=== PATIENT | female | born 1990 | race Hispanic/Latino ===

== ENCOUNTER 2017-10-24 21:15 | Emergency (ER) ==
--- NOTE | 2017-10-24 23:11 | ULT ---
PELVIC ULTRASOUND 10/24/17 COMPARISON: None. HISTORY: 27-year-old female with vaginal pain, right lower quadrant pain, assess for ectopic . TECHNIQUE: Multiplanar duckworth scale sonographic imaging of the pelvis obtained with transabdominal imaging. The ov claudette are assessed for color flow and spectral analysis. FINDINGS: The uterus contains a gestational sac with a single fetus demonstrating a heart rate of 171 beats per minute. Gestational age limits assessment of the anatomy. A breech presentation is noted. Right ovary measures approximately 4.5 x 3.3 cm and demonstrates normal blood flow. A vague right ova digna cyst is suspected, measuring in the 2.3 cm range. Left ovary measures 2.6 x 2.3 cm and demonstrates normal blood flow. Placenta is located posteriorly and to the right. BIOMETRY: BPD 2.4 cm 14 weeks, 0 days HC 9.0 cm 14 weeks, 0 days AC 8.3 cm 14 weeks, 4 days FL 1.5 cm 14 weeks, 2 days Average age based on ultrasound is 14 weeks, 0 days with estimated date of delivery on 04/24/18. Estim ated weight is 97 grams plus/minus 14 grams. IMPRESSION: Intrauterine gestation as detailed above. POS: [facility]
== END 2017-10-24 23:40 | disposition home or self-care (01) ==
LOC: ERS 21:15
DX: O99.89 Other specified diseases and conditions complicating pregnancy, childbirth and the puerperium (principal); R10.9 Unspecified abdominal pain; Z3A.16 16 weeks gestation of pregnancy
CPT/HCPCS: 76856; 93976

== ENCOUNTER 2018-04-22 12:06 | Inpatient (IN) | payer MEDICAID, OTHER, SELFPAY ==
[2018-04-23 05:48] VITALS: BMI 43.4
[2018-04-23] MEDS ORDERED: DISCONTINUE ALL PREVIOUS NARCOTICS FS SCH (06:15)
[2018-04-23] MEDS ORDERED: Bupivacaine 0.5% 20 ML, fentaNYL Citrate/PF 400 MCG in Sodium Chloride 0.9% 72 ML EPIDURAL SCH (06:15)
[2018-04-23] MEDS ORDERED: Lidocaine 1% (PF) 30 ML VIAL ONE (06:41)
[2018-04-23] MEDS ORDERED: NS / Oxytocin 40 units/1000ml 0 ML ONE (06:41)
[2018-04-23 06:42] LABS: Hemoglobin 13.3 g/dL (12.0-16.0); Mean Corpuscular HGB CONC 34.5 g/dL (32.0-36.0); Mean Corpuscular Hemoglobin 28.4 pg (27.0-31.0); Mean Corpuscular Volume 82.4 fL (78.0-98.0); Mean Platelet Volume 10.8 fL (7.4-10.4); Platelet Count 169 thou/uL (130-400); RBC Distribution Width 14.7 % (11.5-14.5); Red Blood Cell (RBC) Count 4.69 mill/uL (4.20-5.40); White Blood Cell (WBC) Count 12.5 thou/uL (4.8-10.8)
[2018-04-23 06:57] LABS: HBSAg Index 0.19 S/CO (0-0.99); Hep B Surf Ag Non-Reactive S/CO (NonReactive); Syphilis Antibody Nonreactive (Nonreactive); Syphilis Antibody Index 0.03 S/CO (<1.00 Non-Reactive)
[2018-04-23] MEDS ORDERED: NS / Oxytocin 40 units/1000ml 1,000 ML ONE ×2 (08:55)
[2018-04-23] MEDS ORDERED: Lanolin Ointment 7 GM TUBE TOP PRN (10:56)
[2018-04-23] MEDS ORDERED: Benzocaine/Menthol 20-0.5% 60 ML CAN TOP PRN (10:56)
[2018-04-23] MEDS ORDERED: HYDROcodone/Acetaminophen 5/325 mg Tablet PO PRN (10:56)
[2018-04-23] MEDS ORDERED: diphenhydrAMINE 25 MG CAP PO PRN (10:56)
[2018-04-23] MEDS ORDERED: Ondansetron HCl/PF 4 MG/2 ML Vial IVP PRN (10:56)
[2018-04-23] MEDS ORDERED: Preparation H Ointment 28 GM TUBE PR PRN (10:56)
[2018-04-23] MEDS ORDERED: Bisacodyl 10 MG SUPP PR PRN (10:56)
[2018-04-23] MEDS ORDERED: Milk Of Magnesia 30 ML UDCUP PO PRN (10:56)
[2018-04-23] MEDS ORDERED: NS / Oxytocin 40 units/1000ml 1,000 ML IV SCH (10:56)
[2018-04-23] MEDS: HYDROcodone/Acetaminophen 5/325 mg Tablet PO PRN (11:15)
[2018-04-23] MEDS: Docusate Calcium (SURFAK) 240 MG CAP PO SCH ×2 (11:30→21:11)
[2018-04-23] MEDS: Ferrous Sulfate 325 MG TAB PO SCH ×2 (12:46→17:07)
[2018-04-23] MEDS: Prenatal Vitamin 1 TAB PO SCH (12:46)
[2018-04-23] MEDS: Ibuprofen 800 MG TAB PO SCH ×2 (13:48→21:11)
[2018-04-24] MEDS: HYDROcodone/Acetaminophen 5/325 mg Tablet PO PRN (04:15)
[2018-04-24 05:25] LABS: Hemoglobin 12.6 g/dL (12.0-16.0); Mean Corpuscular Hemoglobin 28.5 pg (27.0-31.0); Mean Corpuscular Volume 83.9 fL (78.0-98.0); Mean Platelet Volume 10.2 fL (7.4-10.4); Platelet Count 152 thou/uL (130-400); RBC Distribution Width 14.8 % (11.5-14.5); Red Blood Cell (RBC) Count 4.41 mill/uL (4.20-5.40); White Blood Cell (WBC) Count 12.7 thou/uL (4.8-10.8)
[2018-04-24] MEDS: Ibuprofen 800 MG TAB PO SCH (06:19)
[2018-04-24] MEDS ORDERED: Hydrocodone-Acetamin 15 ML UDCUP PO PRN ×2 (06:41)
[2018-04-24] MEDS: Prenatal Vitamin 1 TAB PO SCH (10:45)
[2018-04-24] MEDS: Docusate Calcium (SURFAK) 240 MG CAP PO SCH ×2 (10:45→21:30)
[2018-04-24 13:22] LABS: Bilirubin Negative (Negative); Blood, Urine Small (Negative); Clarity CLEAR (Clear); Glucose, Urine (Dipstick) Negative (Negative); Leukocyte Negative (Negative); Nitrite Negative (Negative); Protein, Urine (Dipstick) Negative (Neg-Trace); Specific Gravity, Urine 1.007 (1.002-1.036); Urobilinogen 0.2 mg/dL (0.2-1.0)
[2018-04-24 13:24] LABS: Bacteria/HPF None Seen HPF (None Seen); Hyaline Casts/LPF 0-3 HYALINE CAST LPF (0-3 Hyaline); RBC/HPF 0-3 HPF (0-3); Squamous Epithelial 0-3 HPF (0-3); WBC/HPF 0-3 HPF (0-3)
[2018-04-24] MEDS: Ibuprofen 100 MG/5 ML UDCUP PO SCH ×2 (14:40→21:30)
[2018-04-25] MEDS: Ibuprofen 100 MG/5 ML UDCUP PO SCH ×2 (05:47→14:22)
[2018-04-25] MEDS ORDERED: Docusate Sodium 100 MG/10 ML UDCUP PO SCH (09:00)
[2018-04-25] MEDS: Prenatal Vitamin 1 TAB PO SCH (09:36)
[2018-04-25 12:40] VITALS: BP 119/69; TEMP 97.4
== END 2018-04-25 15:15 | disposition home or self-care (01) | DRG 775 ==
LOC: L&D 04-23 05:11 → UNDOADMIN 04-23 05:11 → 3SE 04-23 09:50
PROVIDERS: ADMIT Family Medicine; ATTEND Family Medicine
PROC: 10E0XZZ Delivery of Products of Conception, External Approach (ICD-10-PCS; principal; 2018-04-23)
PROC: 0UQMXZZ Repair Vulva, External Approach (ICD-10-PCS; 2018-04-23)
DX: O34.211 Maternal care for low transverse scar from previous cesarean delivery (principal); Z68.41 Body mass index [BMI] 40.0-44.9, adult; O71.82 Other specified trauma to perineum and vulva; O99.214 Obesity complicating childbirth; E66.9 Obesity, unspecified; Z3A.40 40 weeks gestation of pregnancy; Z37.0 Single live birth
CPT/HCPCS: 36415; 81001; 85027; 86780; 86850; 86900; 86901; 87340; 88307; J2001; J3010; J3490; J7050

== ENCOUNTER 2019-10-01 17:37 | Emergency (ER) | payer SELFPAY ==
[~2019-10-01 17:37] MED LIST: Iopamidol-370 76% 500 ML 1 ML ONE
[2019-10-01 18:15] LABS: Bilirubin Negative (Negative); Blood, Urine Negative (Negative); Clarity Turbid (Clear); Glucose, Urine (Dipstick) Normal (Negative); Leukocyte Negative Leu/uL (Negative); Nitrite Negative (Negative); Protein, Urine (Dipstick) 20 mg/dL (Neg-Trace); Urobilinogen Normal mg/dL (Less than 2)
[2019-10-01] MEDS ORDERED: Morphine 4 MG/ML VIAL ONE (18:48)
[2019-10-01] MEDS ORDERED: Ondansetron PF 4 MG/2 ML Vial ONE (18:49)
[2019-10-01 18:54] LABS: #Basophils 0.1 thou/uL (0.0-0.2); #Lymphocytes 3.1 thou/uL (1.20-3.40); #Monocytes 0.9 thou/uL (0.11-0.59); #Neutrophils 10.6 thou/uL (1.40-6.50); %Basophils 0.6 % (0.0-1.0); %Eosinophils 0.3 % (0.0-10.0); %Lymphocytes 21.2 % (21.0-51.0); %Monocytes 6.3 % (0.0-10.0); %Neutrophils 71.6 % (42.0-75.0); Hemoglobin 13.7 g/dL (12.0-16.0); Mean Corpuscular HGB CONC 32.3 g/dL (32.0-36.0); Mean Corpuscular Hemoglobin 26.6 pg (27.0-31.0); Mean Corpuscular Volume 82.4 fL (78.0-98.0); Mean Platelet Volume 9.5 fL (7.4-10.4); Platelet Count 284 thou/uL (130-400); RBC Distribution Width 12.6 % (11.5-14.5); Red Blood Cell (RBC) Count 5.17 mill/uL (4.20-5.40); White Blood Cell (WBC) Count 14.8 thou/uL (4.8-10.8)
[2019-10-01 19:09] LABS: BHCG - Serum Negative (NEGATIVE); Pregs Control Background? CLEAR/WHITE (CLR/WHITE); Pregs Control Bar Appear? YES (CONTROL BAR)
[2019-10-01 19:17] LABS: ALT (SGPT) 15 U/L (8-55); AST (SGOT) 16 U/L (5-34); Albumin 4.5 g/dL (3.5-5.0); Alkaline Phosphatase 76 U/L (40-110); Anion Gap 12 mmol/L (10-20); BUN (Urea Nitrogen) 12 mg/dL (7.0-18.7); Bilirubin, Total 0.5 mg/dL (0.2-1.2); Calc. Creatinine Clearance 0 mL/min (70-130); Calcium 9.4 mg/dL (7.8-10.44); Carbon Dioxide 25 mmol/L (22-29); Chloride 104 mmol/L (98-107); Estimated GFR-MDRD 80; Globulin 3.3 g/dL (2.4-3.5); Glucose 115 mg/dL (70-105); Lipase 15 U/L (8-78); Potassium 3.7 mmol/L (3.5-5.1); Protein, Total 7.8 g/dL (6.0-8.3); Sodium 137 mmol/L (136-145)
--- NOTE | 2019-10-01 20:19 | CT ---
CT OF ABDOMEN AND PELVIS PERFORMED WITH CONTRAST ENHANCEMENT: 10/01/19 HISTORY: Left sided abdomen and flank pain. The lung bases are clear of infiltrates. The liver and spleen show no focal findings. The liver measu res 21 cm in length, mainly related to more of an elongated left lobe. The pancreas region is unremar kable. Gallbladder is somewhat distended. No gallbladder wall thickening or pericholecystic edema janki nge. Right and left adrenal glands are normal. Right and left kidneys are normal in size. There is a small lower pole right renal calculus and an approximately 5 to 6 mm left ureteropelvic junction calculus associated with some moderate left sided hydronephrosis. There is no significant periaortic or mesent sejal adenopathy. CT OF PELVIS PERFORMED WITH CONTRAST: Small fat containing paraumbilical hernia. The appendix is normal. There is no adenopathy or mass. IMPRESSION: 1. Approximately 5 to 6 mm left ureteropelvic junction calculus associated with some moderate le ft sided hydronephrosis. 2. Distended appearing gallbladder. 3. Nonobstructing lower pole right renal calculus. POS: [facility]
[2019-10-01] MEDS ORDERED: Ketorolac Tromethamine 30 MG/ML VIAL ONE (20:27)
== END 2019-10-01 21:45 | disposition home or self-care (01) ==
LOC: ERS 17:37
DX: N13.2 Hydronephrosis with renal and ureteral calculous obstruction (principal); E78.5 Hyperlipidemia, unspecified; E78.00 Pure hypercholesterolemia, unspecified
CPT/HCPCS: 74177; 80053; 81003; 83690; 84703; 85025; 96361; 96374; 96375; J1885; J2270; J2405; Q9967

== ENCOUNTER 2019-10-09 09:38 | Day surgery (SDC) | payer OTHER, SELFPAY ==
[2019-10-08 17:52] VITALS: BMI 38.0
[2019-10-09] MEDS ORDERED: B & O ONE (10:46)
[2019-10-09] MEDS ORDERED: Iothalamate Meglumine 60% 50 ML VIAL FS ONE (10:46)
[2019-10-09] MEDS ORDERED: Fentanyl 100 MCG/2 ML VIAL ONE (10:54)
[2019-10-09] MEDS ORDERED: Dexamethasone 20 MG/5 ML VIAL ONE (11:24)
[2019-10-09] MEDS ORDERED: EPHEDRINE 25 MG/5 ML SYRINGE ONE (11:24)
[2019-10-09] MEDS ORDERED: PROPOFOL 200 MG/20 ML VIAL ONE (11:24)
[2019-10-09] MEDS ORDERED: Lidocaine 1% PF 5 ML VIAL ONE (11:24)
[2019-10-09] MEDS ORDERED: Ondansetron PF 4 MG/2 ML Vial ONE (11:24)
[2019-10-09] MEDS ORDERED: Ketorolac Tromethamine 30 MG/ML VIAL ONE (11:24)
[2019-10-09] MEDS ORDERED: Levofloxacin 500 mg/D5W 100 ml Premix Bag ONE (11:25)
--- NOTE | 2019-10-09 12:36 | OP ---
DATE OF PROCEDURE: 10/09/2019 SERVICE: Urology. PREOPERATIVE DIAGNOSIS: Left ureteral stone. POSTOPERATIVE DIAGNOSIS: Left ureteral stone. PROCEDURES PERFORMED: Left ureteroscopy, laser lithotripsy, basket extraction of stone, placement of 6 x 26 double-J stent with string attached. INDICATION FOR PROCEDURE: Ms. Bob is a 29-year-old female, who initially presented to my office after being in the ER, where she was diagnosed with a 6 mm left UPJ stone. She elected not to go through trial of passage and elected to proceed directly with ureteroscopy with laser lithotripsy. All risks and benefits were discussed, and she has agreed to proceed forward. DESCRIPTION OF PROCEDURE: After identification of armband and verification of consent, the patient was brought back to the operating room, where she underwent general anesthesia with an LMA. She was then placed in dorsal lithotomy position and prepped and draped in usual sterile fashion. After appropriate time-out, a lubricated 22-Kinyarwanda rigid cystoscope was introduced per urethra into the bladder. Attention was turned to the left ureteral orifice. Of note, the patient did have a cystocele present. The left ureteral orifice was cannulated with a 0.035 Sensor wire up to the level of the stone. With some manipulation, the wire was able to be get past the stone into the kidney. The cystoscope was then removed, and a dual-lumen catheter was advanced over the Sensor wire up to the level of the mid ureter. An Amplatz Super Stiff wire was then placed through the second lumen of the dual lumen into the renal pelvis and then the dual-lumen removed. The Sensor wire was affixed to the drapes as a safety wire. An 11/13 x 36 cm ureteral access sheath was then advanced over the Super Stiff wire up to the level of the proximal ureter, but not to the stone, which was radiopaque on fluoroscopy. The inner sheath and Super Stiff wire were then removed leaving the outer sheath and Sensor wire in place. A flexible digital ureteroscope was then passed through the ureteral access sheath up to the level of proximal ureter. During this maneuver, the stone was knocked into the renal pelvis. We then proceeded to go into the renal pelvis, which had a significant amount of turbid material in it. Through irrigation, most of this was washed out. The stone was encountered, and using a 270 micron ball-tip laser fiber, the stone was fragmented into smaller pieces. A 1.9-Kinyarwanda Reelation basket was then used to remove all the fragments and sent them off for routine stone analysis. Upon final pyeloscopy, there were no additional fragments remaining other than submillimeter fragments within one of the calices. The remainder of the kidney did not demonstrate any other foreign material or stone. Pull-back ureteroscopy was employed, and no additional stones were found in the ureter. The sheath and ureteroscope were then removed, and the cystoscope was backloaded over the Sensor wire back into the bladder. A 6 x 26 double-J stent with string attached was advanced over the Sensor wire up to the level of the renal pelvis, where the wire was removed leaving a good curl in the kidney and a good curl in the bladder. The bladder was then emptied and the cystoscope removed. The string was then affixed to the patient's inner thigh with Tegaderm. The patient had a B and O suppository placed, was then taken out of positioning, awakened, taken to PACU for recovery in stable condition. COMPLICATIONS: None. ESTIMATED BLOOD LOSS: Minimal. RETAINED TUBES AND DRAINS: A 6 x 26 double-J stent on the left. SPECIMENS: Stone for stone analysis. DISPOSITION: The patient will be discharged home and follow up with me in approximately 2 weeks. She will be instructed to remove her stent on Sunday a.m. on October 14 by gently pulling the string. I will then handle her followup care on an outpatient basis. Job ID: [id number]
[2019-10-09] MEDS ORDERED: Oxybutynin 5 MG TAB ONE (13:05)
[2019-10-09] MEDS ORDERED: Phenazopyridine HCl 97.5 MG TABLET ONE ×2 (13:05)
== END 2019-10-09 14:40 | disposition home or self-care (01) ==
LOC: SDC 09:38
PROVIDERS: ATTEND Urology
PROC: 0TF78ZZ Fragmentation in Left Ureter, Via Natural or Artificial Opening Endoscopic (ICD-10-PCS; principal; 2019-10-09)
PROC: 0T778DZ Dilation of Left Ureter with Intraluminal Device, Via Natural or Artificial Opening Endoscopic (ICD-10-PCS; principal; 2019-10-09)
DX: N13.2 Hydronephrosis with renal and ureteral calculous obstruction (principal)
CPT/HCPCS: 76000; 82365; 88300; C1769; J1100; J1885; J1956; J2001; J2405; J2704; J3010